=== PATIENT | female | born 1980 | race Caucasian/White ===

== ENCOUNTER 2017-01-18 07:17 | Emergency (ER) | payer OTHER ==
--- NOTE | 2017-01-18 07:34 | EDPHY ---
H & P Time Seen by Provider: 01/18/17 07:34 HPI/ROS: CHIEF COMPLAINT: Left ankle injury HISTORY OF PRESENT ILLNESS: Patient was chasing after a puppy that she had just gotten when she rolled her ankle yesterday. Can't walk on it. Pain is lateral and worse with palpation or movement REVIEW OF SYSTEMS: No other injuries. PAST MEDICAL HISTORY: Negative Social history: 7-year-old daughter, [place] [facility] [place] Appearance: Alert and conversant, cooperative. No tenderness on the proximal tib-fib, compartments are soft. Left lateral ankle tenderness and swelling over the malleolus. No Achilles or medial tenderness and ankle joint is stable. Foot nontender. Skin intact and normal motor sensory and dorsalis pedis pulse. Emergency Department course/MDM: Patient took ibuprofen, declines further medication. X-ray ordered Smoking Status: Never smoked Constitutional: Initial Vital Signs Temperature (C) 36.5 C 01/18/17 07:21 Heart Rate 90 01/18/17 07:21 Respiratory Rate 18 01/18/17 07:21 Blood Pressure 104/69 01/18/17 07:21 O2 Sat (%) 98 01/18/17 07:21 O2 Delivery Mode Room Air Allergies/Adverse Reactions: Penicillins Allergy (Verified 01/18/17 07:20) Home Medications: Medication Instructions Recorded NK [No Known Home Meds] 01/18/17 MDM/Departure - MDM Imaging Results: X-ray interpreted personally by myself shows soft tissue swelling, sprain, no fracture or dislocation Imaging: I viewed and interpreted images myself - Depart Disposition: Home, Routine, Self-Care Clinical Impression: Sprain of left ankle Qualifiers: Encounter type: initial encounter Involved ligament of ankle: unspecified ligament Qualified Code(s): S93.402A - Sprain of unspecified ligament of left ankle, initial encounter Condition: Good Instructions: Ankle Sprain (ED), Ankle Stirrup Splint (ED) Additional Instructions: Activity as tolerated; walking OK. Referrals: Misti Dawson MD [Primary Care Provider] - As per Instructions Rafi Locke MD [Medical Doctor] - As per Instructions [place] [place] coming week[place]
[2017-01-18 07:42] VITALS: BP 104/69; PULSE 90; RESP 18; TEMP 97.7; O2SAT 98
== END 2017-01-18 08:10 | disposition home or self-care (01) ==
DX: S93.402A Sprain of unspecified ligament of left ankle, initial encounter (principal); X58.XXXA Exposure to other specified factors, initial encounter
CPT/HCPCS: L4350